=== PATIENT | female | born 1990 | race Caucasian/White ===

== ENCOUNTER 2017-01-20 11:16 | Emergency (ER) | payer OTHER ==
[2017-01-20 11:41] VITALS: TEMP 99
[2017-01-20] MEDS ORDERED: METOCLOPRAMIDE 10 MG TAB PO ONE (12:19)
--- NOTE | 2017-01-20 12:23 | UCPHY ---
H & P Patient Type: Established Chief Complaint Nursing Narrative: MIGRAINE HEADACHE STARTED AT 9AM, RIGHT SIDED FACIAL NUMBNESS AND RIGHT HAND NUMBNESS STARTED AT 945AM AND OCCURRED FOR APPROX 15-20 MIN WITH GARBLED SPEECH. NOW WITH MILD HEADACHE, NEURO INTACT AT THIS TIME Time Seen by Provider: 01/20/17 12:11 HPI/ROS: CHIEF COMPLAINT: Migraine HISTORY OF PRESENT ILLNESS: The patient is a 26-year-old female with history of complex migraines who comes to the Urgent Care for what began 3 hours ago and has dark spots and tunnel vision in her right eye. She then had a mild headache typical of her migraines . When her vision changes improved she developed tingling in the right side of her face and right hand. She did not have any weakness or numbness. She did notice some garbled speech but not slurred speech. No facial deficits. Symptoms have now completely resolved. She states that she has a long history of migraines. She did not take her Imitrex. The tingling and speech difficulties have only happened a few times before. She denies any head injury. No fevers or recent illness. She now feels back to normal except for a very minimal headache that is typical for her when she is recovering from migraines. She did not take her Imitrex dose. She does not have a neurologist here in [place]. She recently moved from [place]. REVIEW OF SYSTEMS: Constitutional: denies: chills, fever, recent illness, recent injury EENTM: denies: blurred vision, double vision, nose congestion Respiratory: denies: cough, shortness of breath Cardiac: denies: chest pain, irregular heart rate, lightheadedness, palpitations Gastrointestinal/Abdominal: denies: abdominal pain, diarrhea, nausea, vomiting, blood streaked stools Genitourinary: denies: dysuria, frequency, hematuria, pain Musculoskeletal: denies: joint pain, muscle pain Skin: denies: lesions, rash, jaundice, bruising Neurological: See HPI Hematologic/Lymphatic: denies: blood clots, easy bleeding, easy bruising Immunologic/allergic: denies: HIV/AIDS, transplant EXAM: GENERAL: Well-appearing, well-nourished and in no acute distress. HEAD: Atraumatic, normocephalic. EYES: Pupils equal round and reactive to light, extraocular movements intact, sclera anicteric, conjunctiva are normal. ENT: TMs normal, nares patent, oropharynx clear without exudates. Moist mucous membranes. NECK: Normal range of motion, supple without lymphadenopathy or JVD. LUNGS: Breath sounds clear to auscultation bilaterally and equal. No wheezes rales or rhonchi. HEART: Regular rate and rhythm without murmurs, rubs or gallops. ABDOMEN: Soft, nontender, normoactive bowel sounds. No guarding, no rebound. No masses appreciated. BACK: No CVA tenderness, no spinal tenderness, step-offs or deformities EXTREMITIES: Normal range of motion, no pitting or edema. No clubbing or cyanosis. NEUROLOGICAL: Cranial nerves II through XII grossly intact. Normal speech, normal gait. 5/5 strength, normal movement in all extremities, normal sensation PSYCH: Normal mood, normal affect. SKIN: Warm, dry, normal turgor, no visible rashes or lesions. Source: Patient Exam Limitations: No limitations - Personal History LMP (Females 10-55): Over 28 Days Ago - Medical/Surgical History Hx Asthma: Yes Hx Chronic Respiratory Disease: No Hx Diabetes: No Hx Cardiac Disease: No Hx Renal Disease: No Hx Cirrhosis: No Hx Alcoholism: No Hx HIV/AIDS: No Hx Splenectomy or Spleen Trauma: No Other PMH: MIGRAINES, SEASONAL ALLERGIES, KNEE SURG, SINUS SURG, LAP SURG FOR LEFT F. TUBE REMOVAL - Family History Significant Family History: No pertinent family hx - Social History Smoking Status: Never smoked Alcohol Use: Sober Drug Use: None Constitutional: Initial Vital Signs Temperature (C) 37.2 C 01/20/17 11:35 Heart Rate 70 01/20/17 11:35 Respiratory Rate 18 01/20/17 11:35 Blood Pressure 123/93 H 01/20/17 11:35 O2 Sat (%) 96 01/20/17 11:35 O2 Delivery Mode Room Air Allergies/Adverse Reactions: erythromycin base Allergy (Verified 01/20/17 11:33) Penicillins Allergy (Verified 01/20/17 11:33) Home Medications: Medication Instructions Recorded Zyrtec-D Tablet 05/02/16 Imitrex 01/20/17 Metoclopramide [Reglan 10 mg tab 10 mg PO Q4-6PRN PRN #10 tab 01/20/17 (*)] Medical Decision Making ED Course/Re-evaluation: Patient has symptoms classic for a complex migraine. She has had them before. She does not have a neurologist here. We discussed imaging but at this point I do not feel that it is beneficial and she agrees. The likelihood of her having a TIA or stroke or mass or extremely low based on her age and risk factors and rapid recovery and history. I will have her follow up with neurologist. I did offer her headache medication. She would prefer to take it at home. Will give her a dose of regular to take at home. Differential Diagnosis: Partial list of the Differential diagnosis considered include but were not limited to; migraine, atypical migraine, complex a and although unlikely based on the history and physical exam, I also considered cluster headache, TIA, CVA, tumor, dissection, meningitis. I discussed these differential diagnoses and the plan with the patient as well as the usual and expected course. The patient understands that the diagnosis is provisional and that in medicine we are not always correct and that further workup is often warranted. Usual and customary warnings were given. All of the patient's questions were answered. The patient was instructed to return to the emergency department should the symptoms at all worsen or return, otherwise to followup with the physician as we discussed. - Data Points Medications Given: Discontinued Medications Metoclopramide HCl (Reglan) 10 mg PO EDNOW ONE Stop: 01/20/17 12:20 Last Admin: 01/20/17 12:22 Dose: Not Given Departure - Departure Disposition: Home, Routine, Self-Care Clinical Impression: Atypical migraine Condition: Fair Instructions: Migraine Headache (ED) Referrals: Ryan Toth DO [Medical Doctor] - As per Instructions Prescriptions: Metoclopramide [Reglan 10 mg tab (*)] 10 mg PO Q4-6PRN PRN #10 tab PRN Reason: Headache, Migrane - PQRS PQRS Measurement: Not applicable
[2017-01-20 12:54] VITALS: BP 129/70; PULSE 63; RESP 16; O2SAT 93
[2017-01-20] MEDS ORDERED: NS 1,000 ML IV ONE (19:00)
== END 2017-01-20 12:44 | disposition home or self-care (01) ==
LOC: CED 11:16
DX: G43.909 Migraine, unspecified, not intractable, without status migrainosus (principal)
CPT/HCPCS: 96360-PO; 99214-PO; G0463-PO

== ENCOUNTER 2017-03-25 11:38 | Emergency (ER) | payer OTHER | END 2017-03-25 11:46 | disposition left against medical advice (07) | LOC: CED 11:38 | DX: Z53.21 Procedure and treatment not carried out due to patient leaving prior to being seen by health care provider (principal) ==